=== PATIENT | female | born 1955 | race Caucasian/White ===

== ENCOUNTER 2018-05-07 01:14 | Observation (INO) | payer MEDICAID, SELFPAY ==
[2018-05-07] VITALS (8 sets, daily range): BP systolic 124–149; BP diastolic 53–93; PULSE 69–101; RESP 15–20; TEMP 36.5–36.8; O2SAT 94–97; BMI 47.0; BMI 44.9
--- NOTE | 2018-05-07 01:34 | CT_ITS ---
STUDY: CT BRAIN WITHOUT CONTRAST REASON FOR EXAM: Female, 63 years old. Dizziness and vomiting RADIATION DOSAGE (If Supplied By Facility): CTDIvol = ( 44.99 ) mGy, DLP = ( 779.24 ) mGycm TECHNIQUE: Transaxial CT imaging of the brain was performed without administration of intravenous contrast material. Individualized dose optimization techniques were used for this CT. COMPARISON: None. FINDINGS: Normal soft tissue structures. Normal calvarium. Normal size ventricles and extra-axial spaces for the patient's age. Normal white matter tracts of the cerebral hemispheres. Normal basal ganglia and thalami. Normal brainstem. Normal cerebellum. There is no intracranial hemorrhage. There are no findings of an acute ischemic infarction. There is a retention cyst in the right maxillary sinus CT/Brain/Head without Contrast IMPRESSION: No acute findings in the brain. A retention cyst in the right maxillary sinus. Electronically Signed: Jj Hubbard, at 2:15 EDT Tel , Service support ,
--- NOTE | 2018-05-07 01:34 | EKG12_ITS ---
Test Reason : Blood Pressure : / mmHG Vent. Rate : 083 BPM Atrial Rate : 083 BPM P-R Int : 204 ms QRS Dur : 090 ms QT Int : 398 ms P-R-T Axes : 034 -51 018 degrees QTc Int : 467 ms Normal sinus rhythm Left axis deviation Low voltage QRS Abnormal ECG Confirmed by JENNIFER MOCK, BILL ([id number]), television news video editor GIGI RICH ([id number]) on 05/09/2018 3:06:10 PM Referred By: WAYNE Confirmed By:BILL RODRIGUEZ MD
--- NOTE | 2018-05-07 01:34 | RAD_ITS ---
STUDY: X-RAY CHEST REASON FOR EXAM: Female, 63 years old. Degenerative TECHNIQUE: One view COMPARISON: None. FINDINGS: The lungs are clear and expanded. There is no demonstrated pleural abnormality. Normal size heart. Normal mediastinum and fred. Normal visualized pulmonary arteries. Normal visualized aortic arch and descending thoracic aorta. Normal visualized thoracic spine. Normal visualized ribs, clavicles, and shoulders. There is no demonstrated abnormality of the visualized soft tissue structures of the upper abdomen. RAD/Chest 1 View IMPRESSION: Normal x-ray examination of the chest. No acute findings in the lungs Electronically Signed: Jj Hubbard, at 2:13 EDT Tel , Service support ,
[2018-05-07 01:45] LABS: Bedside Glucose 198 mg/dL (70-110)
[2018-05-07 01:45] LABS: Absolute Neutrophil Count 4.6 X10^3/uL (2.0-7.7); Basophil# 0.02 X10^3/uL; Basophil% 0.2 % (0-1); Eosinophil# 0.17 X10^3/uL; Hematocrit 41.1 % (37-47); Hemoglobin 13.9 g/dl (12.0-15.0); Lymphocyte % 35.6 % (19-41); Mean Corp Hgb Conc 33.8 g/gl (32-36); Mean Corpuscular Hgb 29.8 pg (27.0-32.0); Mean Corpuscular Volume 88.2 fL (81-99); Mean Platelet Vol. 9.2 fl (6.2-12.0); Monocyte% 7.1 % (0-10); Neutrophil # 4.62 X10^3/uL (2.7-7.7); Platelet Count 293 K/mm3 (150-450); RBC Distribution Width CV 13.5 % (11.6-14.6); RBC Distribution Width SD 43.1 fl (35.1-43.9); Red Blood Count 4.66 M/mm3 (4.2-5.4); White Blood Count 8.4 K/mm3 (4.4-11.0)
--- NOTE | 2018-05-07 01:45 | ED.DCSUM_ITS ---
- ER Visit Summary Date of Service: 05/07/18 Chief Complaint: Dizziness History of Present Illness: The patient is a 63 F complains of dizziness which started around midnight. Patient also complains of nausea and vomiting. She states the dizziness is both lightheadedness and vertigo sensation. She has been feeling generally weak today. She has a history of previous CVA, coronary disease, borderline diabetes, hypertension. She is on Plavix. She is not a smoker. She states that she has unsteady gait. She denies change in her vision or speech. Denies confusion. Denies numbness or weakness. Physical Examination: Vitals are stable. Patient is afebrile. Alert no acute distress. HEENT exam is unremarkable. Neck is supple. Lungs are clear and equal bilaterally. Heart is regular rate and rhythm. Abdomen is soft mild epigastric tenderness with no rebound or guarding Extremities are unremarkable. Skin is warm and dry. No focal neurologic deficit. NIH 0 Remainder of exam is unremarkable. Emergency Department Course and Treatment: EKG is sinus rate of 83 with no acute ischemic changes. Chest x-ray shows no acute process. CT head shows no acute process. CBC, chemistries unremarkable other than potassium 3.4, glucose 187, BUN 22. Lipase is normal. Troponin is negative. Patient was given Zofran IV. After she passed a bedside swallow she was given meclizine. She continues to complain of both the sensation of near syncope and vertigo. Will discuss with the hospitalist for admission. Disposition: Observation Impression: Near syncope, vertigo This note was generated with [employer] dictation software. It may contain incorrect words, spelling, and punctuation that were not noted in review of the chart prior to signing ED Disposition - Plan for ED Patient: Chief Complaint: Dizziness
[2018-05-07 01:46] LABS: POSITIVE COUNT NO; POSITIVE DIFFERENTIAL NO; POSITIVE MORPHOLOGY NO
[2018-05-07 01:47] LABS: International Normalized Ratio 0.9; Prothrombin Time (Protime)PT. 12.4 SECONDS (11.7-14.9)
[2018-05-07 01:48] LABS: Partial Thromboplast Time 27.2 Seconds (24.1-36.2)
[2018-05-07 01:57] LABS: Anion Gap 10 (5-15); BUN 22 mg/dL (7-18); BUN/Creat Ratio 24.2 RATIO (10-20); Calcium,Total 9.2 mg/dL (8.5-10.1); Chloride 104 mmol/L (98-107); Creatinine, Serum 0.91 mg/dL (0.55-1.02); EST Glomerular Filtration Rate 67 mL/min (>60); Est Glom Filt Rate - Afr Amer 81 mL/min (>60); Estimated Creatinine Clearance 46.04 ml/min; Glucose 187 mg/dL (74-106); Potassium 3.4 mmol/L (3.5-5.1); Sodium Level 140 mmol/L (136-145)
[2018-05-07 02:03] LABS: Lipase 115 U/L (73-393)
[2018-05-07] MEDS: Ondansetron 4 MG/2 ML Vial IV (02:07)
--- NOTE | 2018-05-07 03:08 | PCM.HP.STD ---
Problem List (1) CVA (cerebral vascular accident) Status: Acute (2) CAD (coronary artery disease) Status: Acute (3) Vertigo Status: Acute History of Present Illness Date of Admission: 05/07/18 Chief Complaint: Vertigo The patient is a 63 year old female w/ h/o CVA, CAD, and HTN admitted for vertigo. Her vertigo is episodic and recurrent. It is provoked by head movement, such as looking side to side or up and down. Vertigo is also provoked when she lying down or getting. Vertigo is so severe that it caused nausea and vomiting. She complaint of imbalance between her attack. She woke up this morning feeling fatigue. Nothing appeared to make her fatigue better or worse. Her vertigo started last on the day but worsened at midnight. Family brought her into the ED because she has h/o stroke in the past. 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 history Lives: With Family Smoking Status: Never smoker Alcohol: None Drugs: None - *Family History Maternal History Items: No pertinent history Review of Systems Constitutional: Denies: Chills, Fever, Weight Change HEENT: Denies: Head Aches, Sinus Congestion, Sinus Drainage Cardiovascular: Denies: Chest Pain, Palpitations Respiratory: Denies: Cough, Shortness of breath at rest, Sputum production Gastrointestinal: Denies: Abdominal Pain, Nausea, Vomiting Genitourinary: Denies: Dysuria Musculoskeletal: Denies: Joint Pain, Joint Tenderness Skin: Denies: Rash, Wounds Neurological: Denies: Numbness, Tingling, Focal weakness Psychiatric: Denies: Anxiety, Depression, Homicidal Ideations, Suicidal Ideations Hematologic/ Lymphatic: Denies: Easy Bruising, Easy Bleeding VTE Information - Inpt Only VTE Present on Admission: No VTE Mechan Device Prophylaxis: SCD's VTE Pharm Prophylaxis ordered?: Yes Patient Problems: Active and Suspected Problems CVA (cerebral vascular accident) (Acute) CAD (coronary artery disease) (Acute) Vertigo (Acute) - Physical Exam General: Alert, Oriented x3, Cooperative HEENT: Atraumatic, PERRLA, EOMI, Normocephalic Neck: Supple, No JVD, Negative Carotid Bruits Lungs: Clear to auscultation, Normal air movement Cardiovascular: Regular rate, No murmurs Abdomen: Bowel Sounds Present, Soft, Non Tender Extremities: No edema, Capillary Refill Less than 3 Seconds Skin: No rashes, No breakdown Musculoskeletal: No Tenderness to Palpation of Joints or Extremities Neurological: Cranial nerves II-XII grossly intact Psych/Mental Status: Normal Affect, Appropriate Vital Signs Temp Pulse Resp BP Pulse Ox 98.1 F 91 16 147/70 H 94 05/07/18 01:15 05/07/18 01:15 05/07/18 01:15 05/07/18 01:15 05/07/18 01:15 Oxygen Flow Rate (L/min) 2 Oxygen Delivery Method Nasal Cannula Weight: 109.1 kg Body Mass Index (BMI) 47.0 Finger Stick Blood Glucose 198 Laboratory Tests Past 24 Hrs 05/07/18 05/07/18 05/07/18 01:30 01:30 01:30 WBC 8.4 RBC 4.66 Hgb 13.9 Hct 41.1 MCV 88.2 MCH 29.8 MCHC 33.8 RDW 13.5 RDW Differential 43.1 Plt Count 293 MPV 9.2 Immature Gran % (Auto) 0.100 Neut % (Auto) 55.0 Lymph % (Auto) 35.6 [place] % (Auto) 7.1 Eos % (Auto) 2.0 Baso % (Auto) 0.2 Absolute Neuts (auto) 4.6 Absolute Lymphs (auto) 3.00 Total Counted Not Reportable PT 12.4 INR 0.9 APTT 27.2 Sodium 140 Potassium 3.4 L Chloride 104 Carbon Dioxide 26.0 Anion Gap 10 BUN 22 H Creatinine 0.91 Estim Creat Clear Calc 46.04 Est GFR (MDRD) Af Amer 81 Est GFR (MDRD) Non-Af 67 BUN/Creatinine Ratio 24.2 H Glucose 187 H Calcium 9.2 Troponin I < 0.015 Lipase 05/07/18 01:45 WBC RBC Hgb Hct MCV MCH MCHC RDW RDW Differential Plt Count MPV Immature Gran % (Auto) Neut % (Auto) Lymph % (Auto) Desha % (Auto) Eos % (Auto) Baso % (Auto) Absolute Neuts (auto) Absolute Lymphs (auto) Total Counted PT INR APTT Sodium Potassium Chloride Carbon Dioxide Anion Gap BUN Creatinine Estim Creat Clear Calc Est GFR (MDRD) Af Amer Est GFR (MDRD) Non-Af BUN/Creatinine Ratio Glucose Calcium Troponin I Lipase 115 POC Glucose 05/07/18 01:42 POC Glucose 198 H Assessment/Plan All Active Problems CVA (cerebral vascular accident) (Acute) CAD (coronary artery disease) (Acute) Vertigo (Acute) 63 year old female w/ h/o CVA, CAD, and HTN admitted for vertigo. 1) Vertigo: Most likely benign paroxysmal positional vertigo. CT unremarkable. Exam disclosed no acute finding. Will consider repeating CT head if persistent symptoms. Hydration. 2) Pre-syncope: Probably from vertigo. Will get ECHO and carotid US. Supportive care. 3) Chronic issues: CVA, CAD: Resume home meds. 4) Prophylaxis: SCD / heparin.
--- NOTE | 2018-05-07 03:21 | HP.PCM_ITS ---
Problem List (1) CVA (cerebral vascular accident) Status: Acute (2) CAD (coronary artery disease) Status: Acute (3) Vertigo Status: Acute History of Present Illness Date of Admission: 05/07/18 Chief Complaint: Vertigo The patient is a 63 year old female w/ h/o CVA, CAD, and HTN admitted for vertigo. Her vertigo is episodic and recurrent. It is provoked by head movement , such as looking side to side or up and down. Vertigo is also provoked when she lying down or getting. Vertigo is so severe that it caused nausea and vomiting. She complaint of imbalance between her attack. She woke up this morning feeling fatigue. Nothing appeared to make her fatigue better or worse. Her vertigo started last on the day but worsened at midnight. Family brought her into the ED because she has h/o stroke in the past. 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: No pertinent LAMINATOR PREFORMS history Lives: With Family Smoking Status: Never smoker Alcohol: None Drugs: None - *Family History Maternal History Items: No pertinent history Review of Systems Constitutional: Denies: Chills, Fever, Weight Change HEENT: Denies: Head Aches, Sinus Congestion, Sinus Drainage Cardiovascular: Denies: Chest Pain, Palpitations Respiratory: Denies: Cough, Shortness of breath at rest, Sputum production Gastrointestinal: Denies: Abdominal Pain, Nausea, Vomiting Genitourinary: Denies: Dysuria Musculoskeletal: Denies: Joint Pain, Joint Tenderness Skin: Denies: Rash, Wounds Neurological: Denies: Numbness, Tingling, Focal weakness Psychiatric: Denies: Anxiety, Depression, Homicidal Ideations, Suicidal Ideations Hematologic/ Lymphatic: Denies: Easy Bruising, Easy Bleeding VTE Information - Inpt Only VTE Present on Admission: No VTE Mechan Device Prophylaxis: SCD's VTE Pharm Prophylaxis ordered?: Yes Patient Problems: Active and Suspected Problems CVA (cerebral vascular accident) (Acute) CAD (coronary artery disease) (Acute) Vertigo (Acute) - Physical Exam General: Alert, Oriented x3, Cooperative HEENT: Atraumatic, PERRLA, EOMI, Normocephalic Neck: Supple, No JVD, Negative Carotid Bruits Lungs: Clear to auscultation, Normal air movement Cardiovascular: Regular rate, No murmurs Abdomen: Bowel Sounds Present, Soft, Non Tender Extremities: No edema, Capillary Refill Less than 3 Seconds Skin: No rashes, No breakdown Musculoskeletal: No Tenderness to Palpation of Joints or Extremities Neurological: Cranial nerves II-XII grossly intact Psych/Mental Status: Normal Affect, Appropriate Vital Signs Temp Pulse Resp BP Pulse Ox 98.1 F 91 16 147/70 H 94 05/07/18 01:15 05/07/18 01:15 05/07/18 01:15 05/07/18 01:15 05/07/18 01:15 Oxygen Flow Rate (L/min) 2 Oxygen Delivery Method Nasal Cannula Weight: 109.1 kg Body Mass Index (BMI) 47.0 Finger Stick Blood Glucose 198 Laboratory Tests Past 24 Hrs 05/07/18 05/07/18 05/07/18 01:30 01:30 01:30 WBC 8.4 RBC 4.66 Hgb 13.9 Hct 41.1 MCV 88.2 MCH 29.8 MCHC 33.8 RDW 13.5 RDW Differential 43.1 Plt Count 293 MPV 9.2 Immature Gran % (Auto) 0.100 Neut % (Auto) 55.0 Lymph % (Auto) 35.6 [place] % (Auto) 7.1 Eos % (Auto) 2.0 Baso % (Auto) 0.2 Absolute Neuts (auto) 4.6 Absolute Lymphs (auto) 3.00 Total Counted Not Reportable PT 12.4 INR 0.9 APTT 27.2 Sodium 140 Potassium 3.4 L Chloride 104 Carbon Dioxide 26.0 Anion Gap 10 BUN 22 H Creatinine 0.91 Estim Creat Clear Calc 46.04 Est GFR (MDRD) Af Amer 81 Est GFR (MDRD) Non-Af 67 BUN/Creatinine Ratio 24.2 H Glucose 187 H Calcium 9.2 Troponin I < 0.015 Lipase 05/07/18 01:45 WBC RBC Hgb Hct MCV MCH MCHC RDW RDW Differential Plt Count MPV Immature Gran % (Auto) Neut % (Auto) Lymph % (Auto) [place] % (Auto) Eos % (Auto) Baso % (Auto) Absolute Neuts (auto) Absolute Lymphs (auto) Total Counted PT INR APTT Sodium Potassium Chloride Carbon Dioxide Anion Gap BUN Creatinine Estim Creat Clear Calc Est GFR (MDRD) Af Amer Est GFR (MDRD) Non-Af BUN/Creatinine Ratio Glucose Calcium Troponin I Lipase 115 POC Glucose 05/07/18 01:42 POC Glucose 198 H Assessment/Plan All Active Problems CVA (cerebral vascular accident) (Acute) CAD (coronary artery disease) (Acute) Vertigo (Acute) 63 year old female w/ h/o CVA, CAD, and HTN admitted for vertigo. 1) Vertigo: Most likely benign paroxysmal positional vertigo. CT unremarkable. Exam disclosed no acute finding. Will consider repeating CT head if persistent symptoms. Hydration. 2) Pre-syncope: Probably from vertigo. Will get ECHO and carotid US. Supportive care. 3) Chronic issues: CVA, CAD: Resume home meds. 4) Prophylaxis: SCD / heparin.
[2018-05-07] MEDS: Meclizine 12.5 MG Tablet PO (03:24)
[2018-05-07] MEDS: 0.9% Normal Saline 1,000 ML 150 ML IV (04:35)
--- NOTE | 2018-05-07 08:17 | ECHOD_ITS ---
Reason For Study: HTN Procedure This was a 2D Doppler, Color Flow transthoracic echocardiogram. Exam performed portable in patient room. Left Ventricle Normal LV size. Left ventricular systolic function is normal. The estimated ejection fraction is 55 %. Transmitral doppler flow suggestive of impaired relaxation of left ventricle. No regional wall motion abnormalities noted. Right Ventricle Normal RV size. Normal systolic function. Atria Normal left atrium. Normal right atrium. Amplatzer occluder device. Bubble contrast study negative for right to left interatrial shunt. Mitral Valve Normal mitral valve. Tricuspid Valve Normal tricuspid valve. Mild tricuspid valve insufficiency. Pulmonary artery systolic pressure is 23 mmHg. Aortic Valve Normal aortic valve. Pulmonic Valve Normal pulmonic valve. Great Vessels Normal aortic root. The pulmonary artery is normal size. Inferior vena cava collapse with sniff. Pericardium/Pleural No pericardial effusion. Medication Performed a rapid injection of agitated mix of 9 cc saline and 1cc air to assess for atrial septal defect. MMode/2D Measurements & Calculations LVIDd: 3.8 cm IVSd: 1.4 cm Ao root diam: 3.4 cm LVIDs: 2.6 cm LVPWd: 1.2 cm LA dimension: 3.2 cm RVDd: 3.3 cm FS: 31.0 % LAV(MOD-bp): 46.2 ml LAV(MOD-bp) Indexed: 23.3 ml/m2 LA A4 area: 11.9 cm2 RA A4 area: 9.7 cm2 LAV(MOD-sp2): 60.7 ml LAV(MOD-sp4): 26.3 ml Time Measurements MV dec time: 0.22 sec Doppler Measurements & Calculations MV E max freddy: 82.3 cm/sec Lat Peak E' Freddy: 12.9 cm/sec Med Peak E' Freddy: 11.3 cm/sec MV A max freddy: 101.2 cm/sec E/E' lat: 6.4 E/E' med: 7.3 MV E/A: 0.81 MV V2 max: 103.5 cm/sec MV P1/2t max freddy: 92.5 cm/sec Ao V2 max: 115.6 cm/sec MV max P.3 mmHg MV P1/2t: 76.3 msec Ao max P.3 mmHg MV V2 mean: 60.0 cm/sec MV dec slope: 355.1 cm/sec2 Ao V2 mean: 75.0 cm/sec MV mean P.7 mmHg MVA(P1/2t): 2.9 cm2 Ao mean P.6 mmHg MV V2 VTI: 28.9 cm Ao V2 VTI: 23.4 cm LV V1 max: 102.3 cm/sec PA V2 max: 104.0 cm/sec TR max freddy: 219.3 cm/sec LV V1 max P.2 mmHg TR max P.2 mmHg LV V1 mean P.0 mmHg LV V1 mean: 65.1 cm/sec LV V1 VTI: 24.9 cm Interpretation Summary Normal LV size. Left ventricular systolic function is normal. The estimated ejection fraction is 55 %. Transmitral doppler flow suggestive of impaired relaxation of left ventricle Amplatzer occluder device Bubble contrast study negative for right to left interatrial shunt. Ordering Physician: Harsha Guerrero Referring Physician: Margarita Montoya Performed By: Lazaro Machado RCS
[2018-05-07] MEDS: 0.9% NaCl Peripheral Flush Adult/Peds IV (09:30)
[2018-05-07 09:35] LABS: Thyroid Stim Hormone (TSH) 0.76 uIU/mL (0.358-3.74)
--- NOTE | 2018-05-07 10:50 | NURSING ---
DR. Guerrero is here in room with pts confusion regarding the MRI he ordered. Reji from MRI is here, looking at a card that pt gave this nurse that I handed to Dr. Guerrero. Pt and family states they were told that they should never have an MRI done, ever. Dr. Guerrero is going to talk to the doctor that gave her the card.
[2018-05-07] MEDS: Clopidogrel Bisulfate 75 MG Tablet PO (11:29)
--- NOTE | 2018-05-07 15:20 | DCINST_ITS ---
- Discharge Diagnoses Current Active Problems: Current Active and Chronic Problems CVA (cerebral vascular accident) (Acute) CAD (coronary artery disease) (Acute) Vertigo (Acute) You will use the following diet at home:: No restrictions Your food should be the consistency of: Regular Your liquids should be the consistency of: Regular/Thin Discharge Activity: Return to Normal Activity Weight Bearing Status: Full weight bearing - use walker if needed Allergies/Adverse Reactions: Allergies morphine Allergy (Verified 05/07/18 03:52) Chest tightness Medications to take at Discharge Acetaminophen [Tylenol Tablet] 650 mg PO Q6H PRN PRN tablet 05/07/18 Clopidogrel Bisulfate [Plavix] 75 mg PO DAILY 05/07/18 Diazepam [Valium] 2 mg PO TID PRN PRN #20 tab 05/07/18 Furosemide [Lasix] 40 mg PO DAILY 05/07/18 L.acidoph,Paracasei, B.lactis [Probiotic] 1 each PO DAILY 05/07/18 Potassium Chloride [K-Dur] 20 meq PO DAILY #60 tab 05/07/18 The following prescriptions were given: Diazepam [Valium] 2 mg PO TID PRN PRN #20 tab PRN Reason: dizzyness Potassium Chloride [K-Dur] 20 meq PO DAILY #60 tab Primary Care Physician: Lindsay Avila [Primary Care Provider] - Please follow up with your Primary Care Physician in: in 1-2 weeks Test Results: Test results from this visit will be discussed in further detail at your follow- up appointment, if applicable.
--- NOTE | 2018-05-07 17:07 | NURSING ---
At approx. 1400 today, This nurse informed Dr. Guerrero that potassium was 3.4. and that she normally takes 10meq at home po at noon but did not have any and it was on her home med list but not continued. No new orders from Dr. Guerrero.
--- NOTE | 2018-05-08 18:06 | PCM.DC.SUM ---
Discharge Date and Diagnosis Date of Admission: 05/07/18 Date of Discharge: 05/07/18 - Primary Discharge Diagnosis #1 benign positional vertigo #2 cerebrovascular disease #3 hypokalemia #4 hyperglycemia Hospital Course and Treatment Operations: None Procedures: None Summary of Care Provided: The patient is a 63 year old F who was seen in the emergency room at [facility] with chief complaint of dizziness associated with nausea and vomiting. Workup in the emergency room included a CT of the brain which showed no acute pathology, labs were remarkable for slightly low potassium at 3.4. Glucose was elevated at 187. Patient was placed in observation status on Medr 3, she was seen by PT and OT, this examiner had numerous conversations with her and her as well as her daughter concerning an MRI of the brain which the patient refused to have performed fearing that her PFO implant which was done September 2017 would not be safe if the MRI was performed. Patient had a card with the device information on it and the card stated that the patient could have an MRI, patient then requested that I call her warehouse receiver concerning this, I contacted the covering physician for her warehouse receiver who did talk with the warehouse receiver and stated it was okay for the patient have an MRI. Despite this, patient refused to have an MRI of her brain after talking with her daughter, I told her that this test was optional anyway because I felt she had benign positional vertigo based on her symptoms and presentation. On 05/07/18, patient ambulated with physical therapy and was able to ambulate without difficulty sometimes using a walker, it was felt she was stable for discharge home at that time. Patient refused Valium that I prescribed while she was in the hospital, I did give her a prescription for this to use as needed as an outpatient Discharge Activity: Return to Normal Activity Weight Bearing Status: Full weight bearing - use walker if needed Home Medications: Medications to take at Discharge Acetaminophen [Tylenol Tablet] 650 mg PO Q6H PRN PRN tablet 05/07/18 Clopidogrel Bisulfate [Plavix] 75 mg PO DAILY 05/07/18 Diazepam [Valium] 2 mg PO TID PRN PRN #20 tab 05/07/18 Furosemide [Lasix] 40 mg PO DAILY 05/07/18 L.acidoph,Paracasei, B.lactis [Probiotic] 1 each PO DAILY 05/07/18 Potassium Chloride [K-Dur] 20 meq PO DAILY #60 tab 05/07/18 Following Prescrptions Were Given to Patient: Diazepam [Valium] 2 mg PO TID PRN PRN #20 tab PRN Reason: dizzyness Potassium Chloride [K-Dur] 20 meq PO DAILY #60 tab Primary Care Physician: Lindsay Avila [Primary Care Provider] - Please follow up with your Primary Care Physician in: in 1-2 weeks Disposition: Home Minutes spent on discharge:: 28 Patient Condition:: Stable Medical Necessity - Tobacco Use Smoking Status: Never smoker Meaningful Use Info Meaningful Use Diagnoses (Choose all that apply): None applicable Code Visit OBSV E&M: 88804 Observation care discharge
--- NOTE | 2018-05-08 18:14 | DS.PCM_ITS ---
Discharge Date and Diagnosis Date of Admission: 05/07/18 Date of Discharge: 05/07/18 - Primary Discharge Diagnosis #1 benign positional vertigo #2 cerebrovascular disease #3 hypokalemia #4 hyperglycemia Hospital Course and Treatment Operations: None Procedures: None Summary of Care Provided: The patient is a 63 year old F who was seen in the emergency room at [facility] with chief complaint of dizziness associated with nausea and vomiting. Workup in the emergency room included a CT of the brain which showed no acute pathology, labs were remarkable for slightly low potassium at 3.4. Glucose was elevated at 187. Patient was placed in observation status on Medr 3, she was seen by PT and OT, this examiner had numerous conversations with her and her as well as her daughter concerning an MRI of the brain which the patient refused to have performed fearing that her PFO implant which was done September 2017 would not be safe if the MRI was performed. Patient had a card with the device information on it and the card stated that the patient could have an MRI, patient then requested that I call her technical marketing consultant concerning this, I contacted the covering physician for her technical marketing consultant who did talk with the technical marketing consultant and stated it was okay for the patient have an MRI. Despite this, patient refused to have an MRI of her brain after talking with her daughter, I told her that this test was optional anyway because I felt she had benign positional vertigo based on her symptoms and presentation. On 05/07/18, patient ambulated with physical therapy and was able to ambulate without difficulty sometimes using a walker, it was felt she was stable for discharge home at that time. Patient refused Valium that I prescribed while she was in the hospital, I did give her a prescription for this to use as needed as an outpatient Discharge Activity: Return to Normal Activity Weight Bearing Status: Full weight bearing - use walker if needed Home Medications: Medications to take at Discharge Acetaminophen [Tylenol Tablet] 650 mg PO Q6H PRN PRN tablet 05/07/18 Clopidogrel Bisulfate [Plavix] 75 mg PO DAILY 05/07/18 Diazepam [Valium] 2 mg PO TID PRN PRN #20 tab 05/07/18 Furosemide [Lasix] 40 mg PO DAILY 05/07/18 L.acidoph,Paracasei, B.lactis [Probiotic] 1 each PO DAILY 05/07/18 Potassium Chloride [K-Dur] 20 meq PO DAILY #60 tab 05/07/18 Following Prescrptions Were Given to Patient: Diazepam [Valium] 2 mg PO TID PRN PRN #20 tab PRN Reason: dizzyness Potassium Chloride [K-Dur] 20 meq PO DAILY #60 tab Primary Care Physician: Lindsay Avila [Primary Care Provider] - Please follow up with your Primary Care Physician in: in 1-2 weeks Disposition: Home Minutes spent on discharge:: 28 Patient Condition:: Stable Medical Necessity - Tobacco Use Smoking Status: Never smoker Meaningful Use Info Meaningful Use Diagnoses (Choose all that apply): None applicable Code Visit OBSV E&M: 53647 Observation care discharge
== END 2018-05-07 17:25 | disposition home or self-care (01) ==
LOC: ED 02:15 → MS3 03:07
PROVIDERS: Admitting Provider Internal Medicine; Emergency Provider Emergency Medicine; Family Provider Internal Medicine; PCP Internal Medicine; Visit Provider Internal Medicine
DX: H81.10 Benign paroxysmal vertigo, unspecified ear (principal); E87.6 Hypokalemia; R73.9 Hyperglycemia, unspecified; Z86.73 Personal history of transient ischemic attack (TIA), and cerebral infarction without residual deficits; I10 Essential (primary) hypertension; Z79.02 Long term (current) use of antithrombotics/antiplatelets; Z79.899 Other long term (current) drug therapy; R55 Syncope and collapse; I25.10 Atherosclerotic heart disease of native coronary artery without angina pectoris
CPT/HCPCS: 36415; 70450; 71045; 80048; 82962; 83690; 84443; 84484; 85025; 85610; 85730; 93005; 93306; 96361; 96374; 97162; 99218; 99285; J7030; Q9957; A4216; G0378; J2405

== ENCOUNTER → 2025-02-09 | Outpatient (CLI) | payer MEDICARE, OTHER, SELFPAY ==
--- NOTE | 2025-02-09 14:29 | VDLE_ITS ---
Reason For Study Reason For Study: LLE Pain RIGHT LEFT FV is compressible, spontaneous, phasic, competent CFV is compressible, spontaneous, phasic, competent, and demonstrates normal augmentation. and demonstrates normal augmentation. Procedure FV is compressible, spontaneous, phasic, competent and This is a venous duplex using B-mode, color flow and demonstrates normal augmentation. spectral Doppler. POP V is compressible, spontaneous, phasic, competent Exam performed in department. and demonstrates normal augmentation. The exam was diagnostic. T/P Trunk is compressible. A preliminary report was called and/or faxed to [facility] PTV is compressible. RN at Dr Avila office. LT PerV is compressible. GSV appears compressible throughout. Tortuous varicosity/branch of GSV is dilated and NONCOMPRESSIBLE at prox thigh near area of SFJ. Finding is consistent with SVT. Nonvascularized anechoic area measuring approximately 4.96cm x 1.92cm is noted in Lt Pop Fossa. VL/Venous Duplex US, Unilateral Interpretation Summary Acute superficial vein thrombosis noted in proximal thigh varicosity. Deep veins of the left lower extremity are patent and compressible segmentally. There is no evidence of left lower extremity deep vein thrombosis. The left great saphenous vein appears patent an d compressible segmentally. Nonvascularized anechoic area measuring approximately 4.96cm x 1.92cm is noted in left popliteal fossa. Ordering Physician: Lindsay Avila Referring Physician: Lindsay Avila Performed By: Seferino Elkins, RVT
== END | disposition home or self-care (01) ==
PROVIDERS: PCP Internal Medicine; Referring Provider Internal Medicine; Visit Provider Internal Medicine
DX: M79.605 Pain in left leg (principal); Z91.81 History of falling
CPT/HCPCS: 93971